=== PATIENT | male | born 1965 | race Caucasian/White ===

== ENCOUNTER → 2020-10-05 | Outpatient (CLI) | payer OTHER | LOC: ULTRA 13:10 | PROVIDERS: ATTEND Family Medicine | DX: I65.29 Occlusion and stenosis of unspecified carotid artery (principal); I70.8 Atherosclerosis of other arteries; H47.092 Other disorders of optic nerve, not elsewhere classified, left eye; H35.09 Other intraretinal microvascular abnormalities ==

== ENCOUNTER → 2020-12-18 | Outpatient (CLI) | payer OTHER | LOC: SJCVCIMAG | PROVIDERS: ATTEND Internal Medicine | DX: R94.31 Abnormal electrocardiogram [ECG] [EKG] (principal); R00.2 Palpitations; I25.10 Atherosclerotic heart disease of native coronary artery without angina pectoris; E11.9 Type 2 diabetes mellitus without complications; R06.00 Dyspnea, unspecified; R53.83 Other fatigue ==

== ENCOUNTER → 2021-10-19 | Outpatient (CLI) | payer OTHER | LOC: RAD 11:58 | PROVIDERS: ATTEND Family Medicine | DX: M25.511 Pain in right shoulder (principal); M77.8 Other enthesopathies, not elsewhere classified ==